=== PATIENT | female | born 1990 | race Caucasian/White ===

== ENCOUNTER 2017-08-30 16:01 | Emergency (ER) | payer MEDICAID ==
[2017-08-30 16:08] VITALS: TEMP 97.7
--- NOTE | 2017-08-30 16:31 | CPEKG ---
Heart Rate: 78 RR Interval: 769 P-R Interval: 152 QRSD Interval: 88 QT Interval: 384 QTC Interval: 438 P Monroe: 54 QRS [place]: 75 T Wave [place]: 38 EKG Severity - BORDERLINE ECG - EKG Impression: SINUS RHYTHM EKG Impression: PROBABLE LEFT ATRIAL ABNORMALITY Electronically Signed By: Monika Gold 30-Aug-2017 20:58:21
--- NOTE | 2017-08-30 16:43 | EDPHY ---
H & P Time Seen by Provider: 08/30/17 16:19 HPI/ROS: CHIEF COMPLAINT: Lightheadedness, chest pressure HISTORY OF PRESENT ILLNESS: The patient is a 27-year-old female who presents to the emergency department with waves of chest pressure starting this morning. She describes it as a "knot sensation". She had an episode a few hours ago and had an episode of lightheadedness. Patient laid down on the ground. She is unclear if she had a syncopal episode. She denies any nausea or vomiting. She has no headache. No focal weakness or numbness. No visual change. No shortness of breath. No abdominal pain. The patient recently started Mucinex. REVIEW OF SYSTEMS: My complete review of systems is negative except as mentioned in the HPI. Past Medical/Surgical History: Includes sinus infection, LEEP procedure, IUD Social history: The patient does not smoke. She denies drug use. Family history: The patient's father had valvular disease. No sudden cardiac or acute NV. Smoking Status: Never smoked Physical Exam: 36.5, 135/85, 88, 16, 98% on room air GENERAL: Well-appearing, in no acute distress, alert. HEENT: Eyes normal to inspection, normal pharynx, no signs of dehydration. NECK: No thyromegaly, no lymphadenopathy, supple. RESPIRATORY: Clear to auscultation bilaterally, no rales, rhonchi or wheezing. CVS: Regular rate and rhythm, no rubs, murmurs, or gallops. ABDOMEN: Soft, nontender, nondistended, no organomegaly. BACK: Normal to inspection, no CVA tenderness. SKIN: Normal color, no rash, warm, dry. No pallor. EXTREMITIES: No pedal edema, no calf tenderness, no Homans sign or cords, no joint swelling. NEURO/PSYCH: Higher functions: Alert and Oriented x3. Normal speech and cognition. Normal mood and affect. Cranial nerves: Normal as tested. Cerebellar: Normal as tested. Good finger to nose, good [id number], normal gait. Peripheral exam: Normal motor exam. Normal sensation. Normal reflexes. Constitutional: Initial Vital Signs Temperature (C) 36.5 C 08/30/17 16:05 Heart Rate 88 08/30/17 16:05 Respiratory Rate 16 08/30/17 16:05 Blood Pressure 135/85 H 08/30/17 16:05 O2 Sat (%) 98 08/30/17 16:05 O2 Delivery Mode Room Air Allergies/Adverse Reactions: Sulfa (Sulfonamide Antibiotics) Allergy (Verified 08/30/17 16:04) Home Medications: Medication Instructions Recorded Mucinex 08/30/17 Paraguard Iud 08/30/17 Medical Decision Making ED Course/Re-evaluation: In the emergency department I discussed possible etiologies with the patient. I answered all her questions. IV was placed. Laboratory studies and EKG were obtained. EKG shows normal sinus rhythm, normal rate, normal axis, normal intervals. There are no ST or T-wave abnormalities. EKG is normal as interpreted by me. Patient's CBC, chemistry, troponin and D-dimer were negative. I rechecked the patient. She was feeling well. She had no new complaints. She is given warnings prior to leaving. She will return with worsening symptoms. Differential Diagnosis: My differential includes but is not limited to ACS, acute NV, dysrhythmia, dissection, aneurysm, pulmonary embolus, electrolyte abnormality, sugar abnormality - Data Points Laboratory Results: Laboratory Results 08/30/17 16:25 08/30/17 16:25 08/30/17 08/30/17 08/30/17 16:25 16:25 16:25 WBC RBC Hgb Hct MCV MCH MCHC RDW Plt Count MPV Neut % (Auto) Lymph % (Auto) [place] % (Auto) Eos % (Auto) Baso % (Auto) Nucleat RBC Rel Count Absolute Neuts (auto) Absolute Lymphs (auto) Absolute Monos (auto) Absolute Eos (auto) Absolute Basos (auto) Absolute Nucleated RBC Immature Gran % Immature Gran # D-Dimer < 0.27 ug/mLFEU ug/mLFEU (0.00-0.50) Sodium 143 mEq/L mEq/L (135-145) Potassium 4.0 mEq/L mEq/L (3.5-5.2) Chloride 101 mEq/L mEq/L (97-110) Carbon Dioxide 28 mEq/l mEq/l (22-31) Anion Gap 14 mEq/L mEq/L (8-16) BUN 11 mg/dL mg/dL (7-23) Creatinine 0.6 mg/dL mg/dL (0.6-1.0) Estimated GFR > 60 Glucose 86 mg/dL mg/dL (70-100) Calcium 9.6 mg/dL mg/dL (8.5-10.4) Troponin I < 0.012 ng/mL ng/mL (0.000-0.034) Beta HCG, Qual NEGATIVE 08/30/17 16:25 WBC 11.41 10^3/uL H 10^3/uL (3.80-9.50) RBC 4.96 10^6/uL 10^6/uL (4.18-5.33) Hgb 14.4 g/dL g/dL (12.6-16.3) Hct 43.3 % % (38.0-47.0) MCV 87.3 fL fL (81.5-99.8) MCH 29.0 pg pg (27.9-34.1) MCHC 33.3 g/dL g/dL (32.4-36.7) RDW 12.0 % % (11.5-15.2) Plt Count 346 10^3/uL 10^3/uL (150-400) MPV 9.9 fL fL (8.7-11.7) Neut % (Auto) 69.4 % % (39.3-74.2) Lymph % (Auto) 20.7 % % (15.0-45.0) [place] % (Auto) 6.5 % % (4.5-13.0) Eos % (Auto) 2.7 % % (0.6-7.6) Baso % (Auto) 0.4 % % (0.3-1.7) Nucleat RBC Rel Count 0.0 % % (0.0-0.2) Absolute Neuts (auto) 7.92 10^3/uL H 10^3/uL (1.70-6.50) Absolute Lymphs (auto) 2.36 10^3/uL 10^3/uL (1.00-3.00) Absolute Monos (auto) 0.74 10^3/uL 10^3/uL (0.30-0.80) Absolute Eos (auto) 0.31 10^3/uL 10^3/uL (0.03-0.40) Absolute Basos (auto) 0.05 10^3/uL 10^3/uL (0.02-0.10) Absolute Nucleated RBC 0.00 10^3/uL 10^3/uL (0-0.01) Immature Gran % 0.3 % % (0.0-1.1) Immature Gran # 0.03 10^3/uL 10^3/uL (0.00-0.10) D-Dimer Sodium Potassium Chloride Carbon Dioxide Anion Gap BUN Creatinine Estimated GFR Glucose Calcium Troponin I Beta HCG, Qual Departure - Departure Disposition: Home, Routine, Self-Care Clinical Impression: Lightheadedness Chest pain Qualifiers: Chest pain type: unspecified Qualified Code(s): R07.9 - Chest pain, unspecified Condition: Good Instructions: Chest Pain (ED) Additional Instructions: Return with increasing symptoms, chest pain, shortness of breath, fever or any other concerns. Referrals: Mark Sierra MD [[facility] [place] Primary Care Provider] - 5-7 days, call for appt.
[2017-08-30 17:04] LABS: PLATELET COUNT 346 10^3/uL (150-400)
[2017-08-30 19:00] VITALS: BP 102/68; PULSE 66; RESP 22; O2SAT 94
== END 2017-08-30 19:01 | disposition home or self-care (01) ==
DX: R42 Dizziness and giddiness (principal); R07.9 Chest pain, unspecified

== ENCOUNTER 2017-10-22 07:12 | Emergency (ER) | payer MEDICAID ==
--- NOTE | 2017-10-22 07:33 | EDPHY ---
H & P Stated Complaint: surg tues/chronic sinusitis/now with mccauley Time Seen by Provider: 10/22/17 07:33 - Personal History LMP (Females 10-55): 8-14 Days Ago Current Tetanus/Diphtheria Vaccine: Yes - Medical/Surgical History Hx Asthma: No Hx Chronic Respiratory Disease: No Hx Diabetes: No Hx Cardiac Disease: No Hx Renal Disease: No Hx Cirrhosis: No Hx Alcoholism: No Hx HIV/AIDS: No Hx Splenectomy or Spleen Trauma: No Other PMH: leap procedure/sinus infection/appy - Social History Smoking Status: Never smoked Constitutional: Initial Vital Signs Temperature (C) 36.5 C 10/22/17 07:16 Heart Rate 85 10/22/17 07:16 Respiratory Rate 18 10/22/17 07:16 Blood Pressure 115/83 H 10/22/17 07:16 O2 Sat (%) 95 10/22/17 07:16 O2 Delivery Mode Room Air Allergies/Adverse Reactions: Sulfa (Sulfonamide Antibiotics) Allergy (Verified 10/22/17 07:15) Home Medications: Medication Instructions Recorded Paraguard Iud 08/30/17 CEPHALEXIN 10/22/17 [place] 5/325 (*) 10/22/17 Medical Decision Making ED Course/Re-evaluation: CHIEF COMPLAINT: Facial pain and headache HISTORY OF PRESENT ILLNESS: Healthy 27-year-old female who this past Monday had bilateral sinus surgery for chronic sinusitis by a physician at [place]. She had been doing quite well up until yesterday when she developed a lot of facial pain and headache. She continues to drain but the drainage has decreased a bit according to her. It is certainly less bloody, but she still has some drainage that she has had since surgery which is clear and not thick. She does not feel systemically ill. She has no fevers or chills. She just has a headache. She spoke to her ENT surgeon this morning who suggested she come to the emergency department to obtain better pain control. She has been taking 1 5 mg [place] every 4-6 hours and I believe she is simply behind and pain currently. REVIEW OF SYSTEMS: A 10 point review of systems was performed and is negative with the exception of the elements mentioned in the history of present illness. PHYSICAL EXAM: HR, BP, O2 Sat, RR. Temp noted General Appearance: Alert, well hydrated, appropriate, and non-toxic appearing. Head: Atraumatic without scalp tenderness or obvious injury Eyes: Pupils equal, round, reactive to light and accommodation, EOMI, no trauma , no injection. Ears: Clear bilaterally, no perforation, normal landmarks Nose: Atraumatic, no rhinorrhea, clear. Throat: There is no erythema or exudates, no lesions, normal tonsils, mucus membranes moist. Neck: Supple, nontender, no lymphadenopathy. Respiratory: No retractions, no distress, no wheezes, and no accessory muscle use. Lungs are clear to auscultation bilaterally. Cardiovascular: Regular rate and rhythm, no murmurs, rubs, or gallops. Good capillary refill all extremities. Gastrointestinal: Abdomen is soft, nontender, non-distended, no masses, no rebound, no guarding, no peritoneal signs. Musculoskeletal: Normal active ROM of all extremities, atraumatic. Neurological: Alert, appropriate, and interactive. The patient has non-focal cranial nerves, motor, sensory, and cerebellar exam. Skin: No rashes, good turgor, no nodules on palpation. Past medical history: Chronic sinusitis Past surgical history: Bilateral sinus surgery Family history: Noncontributory Social history: Single, employed, does not abuse tobacco drugs or alcohol DIAGNOSTICS/PROCEDURES/CRITICAL CARE TIME: None Necessary DIFFERENTIAL DIAGNOSIS: The differential diagnosis for the patient's headache included but was not limited to subarachnoid hemorrhage, migraine headache, tension headache and infectious causes such as meningitis, pharyngitis and sinusitis. MEDICAL DECISION MAKING: This patient is having postoperative sinus headache. I do not believe that she is having an infectious process based on the fact that her drainages decreased not increased, she is already on cephalexin, and she has been using saline flushes with good results. I do not believe imaging would be helpful since she sober recently out of surgery. I am giving this patient Toradol, Reglan, dexamethasone and Dilaudid as needed. 0819: Reevaluated patient. She is feeling much better and ready to go home. Her headache is completely resolved. I believe she needs a slightly stronger outpatient pain regimen and I will start her on Oxy IR. Return precautions discussed. She will follow up with her ENT doctor tomorrow. - Data Points Medications Given: Discontinued Medications Dexamethasone (Decadron Injection) 10 mg IVP EDNOW ONE Stop: 10/22/17 07:39 Last Admin: 10/22/17 07:48 Dose: 10 mg Hydromorphone HCl (Dilaudid) 0.5 mg IVP EDNOW ONE Stop: 10/22/17 07:43 Last Admin: 10/22/17 07:48 Dose: 0.5 mg Ketorolac Tromethamine (Toradol) 30 mg IVP EDNOW ONE Stop: 10/22/17 07:42 Last Admin: 10/22/17 07:48 Dose: 30 mg Metoclopramide HCl (Reglan Injection) 10 mg IVP EDNOW ONE Stop: 10/22/17 07:39 Last Admin: 10/22/17 07:48 Dose: 10 mg Departure - Departure Disposition: Home, Routine, Self-Care Clinical Impression: Headache Qualifiers: Headache type: unspecified Headache chronicity pattern: acute headache Intractability: intractable Qualified Code(s): R51 - Headache Condition: Good Instructions: Acute Headache (ED), Oxycodone, Rapid Release (By mouth) Additional Instructions: 1. Take OxyIR as prescribed for severe pain. This can make you drowsy and constipated. Take appropriate precautions. 2. Follow up with your ENT as scheduled. 3. Return for worsening of condition. Referrals: Lamar Smalls PA [Physician [facility]] - As per Instructions
[2017-10-22] MEDS ORDERED: METOCLOPRAMIDE 10 MG/2 ML VIAL IVP ONE (07:38)
[2017-10-22] MEDS ORDERED: DEXAMETHASONE 10 MG/ML VIAL IVP ONE (07:38)
[2017-10-22] MEDS ORDERED: KETOROLAC 30 MG/1 ML SDV IVP ONE (07:41)
[2017-10-22] MEDS ORDERED: HYDROmorphONE/DILAUDID 2 MG/ML INJ IVP ONE (07:42)
[2017-10-22] MEDS ORDERED: OXYCODONE/APAP 5/325MG PREPACK#4 BTL TAKEHOME ONE (08:20)
[2017-10-22 08:28] VITALS: BP 94/54
== END 2017-10-22 08:48 | disposition home or self-care (01) ==
DX: R51 Headache (principal)
CPT/HCPCS: 96374; J1100; J1170; J1885; J2765